=== PATIENT | male | born 1940 | race Caucasian/White ===

== ENCOUNTER 2016-08-01 10:45 | Emergency (ER) | payer MEDICARE, OTHER ==
[~2016-08-01] VITALS: Ht 170.2 cm; Wt 108.5 kg
[~2016-08-01 10:45] MED LIST: AMO500 PO; ESOM40CA PO; FAMO40TA52 PO; IMIQ1CRE14 TOP; LISI30TA47 PO; MECL12.574 PO; NPH10OT LEFT EAR; PANT40TA3 PO; PROP60CA PO
[2016-08-01 10:59] VITALS: Ht 170.2 cm; Wt 108.5 kg
[2016-08-01] MEDS ORDERED: AMO500 PO (12:08)
[2016-08-01] MEDS ORDERED: CARB15DR48 LEFT EAR (12:08)
--- NOTE | 2016-08-01 12:17 | ERD ---
ER Documentation Chief Complaint Date/Time DATE: 08/01/16 TIME: 12:12 Chief Complaint LEFT EARCHE X 3 DAYS HPI 76-year-old male comes in with left-sided ear pain for the past 3 days. Patient states that 2 months ago he had a similar problem where they did an irrigation due to wax and then went home with antibiotics including amoxicillin and Polytrim drops, then his symptoms resolved. Over the last 3 days the same pain has resolved, he complains of any ear pain that is achy, nonradiating without any fevers, chills. He denies drainage. ROS All systems reviewed and are negative except as per history of present illness. Medications Home Meds Active Scripts Carbamide Peroxide* (Debrox*) 6.5% - 15 Ml Drops, 10 DROP LEFT EAR BID, #1 BOTTLE Prov:LAKEISHA BRANNON PA-C 08/01/16 Amoxicillin* (Amoxicillin*) 500 Mg Cap, 500 MG PO TID for 7 Days, CAP Prov:LAKEISHA BRANNON PA-C 08/01/16 Imiquimod (Imiquimod) 5% Cream.pack, 1 PACKET TOP 3 x's a week, #1 EA Prov:MARCY NEWMAN 06/20/16 Neomycin/Polymyxin/Hydrocort* (Cortisporin* Otic) 10 Ml Susp, 4 DROP LEFT EAR QID for 7 Days, #1 EA Prov:MARCY NEWMAN 06/20/16 Amoxicillin* (Amoxicillin*) 500 Mg Cap, 500 MG PO BID for 10 Days, CAP Prov:MARCY NEWMAN 06/20/16 Famotidine* (Famotidine*) 40 Mg Tablet, 40 MG PO BID, #60 TAB Prov:MONROE HAYS 06/16/16 Meclizine Hcl* (Antivert*) 12.5 Mg Tab, 12.5 MG PO Q6H Y for DIZZINESS, #20 TAB Prov:EVON SELLERS MD 04/20/16 Pantoprazole* (Protonix*) 40 Mg Tablet., 40 MG PO DAILY, #20 TAB Prov:ROB SMITH MD 02/29/16 Reported Medications Lisinopril* (Lisinopril*) 30 Mg Tablet, 30 MG PO DAILY, #30 TAB 06/16/16 Esomeprazole Mag Trihydrate (Nexium) 40 Mg Capsule., 40 MG PO DAILY 07/23/15 Propranolol Hcl* (Propranolol Hcl*) 60 Mg Cap.sa.24h, 60 MG PO BID 03/05/13 Allergies Allergies: Coded Allergies: No Known Drug Allergy (Verified Allergy, Unknown, 02/29/16) PMhx/Soc History of Surgery: Yes (HERNIA, COLON) Anesthesia Reaction: No Hx Neurological Disorder: No Hx Respiratory Disorders: No Hx Cardiac Disorders: Yes (HTN) Hx Psychiatric Problems: No Hx Miscellaneous Medical Probl: No Hx Alcohol Use: No Hx Substance Use: No Hx Tobacco Use: No Physical Exam Vitals Vital Signs Date Time Temp Pulse Resp B/P Pulse Ox O2 Delivery O2 Flow Rate FiO2 08/01/16 10:59 98.6 60 18 140/66 98 Physical Exam General: Well-developed, well-nourished. The patient appears in no acute distress. HEENT: Head is normocephalic, atraumatic. No scleral icterus. Oropharynx is clear. Left TM has mild debris, mild erythema on the borders of the TM, no rupture Neck: Supple. Nontender. Lungs: Clear to auscultation. Normal air movement. Heart: Regular rate and rhythm. S1 and S2 are normal. No murmurs, gallops, or rubs. Abdomen: Nondistended. Extremities: No clubbing or cyanosis. Moving extremities x 4. No weakness. Neurologic: Alert and oriented 3. No focal deficits. Normal speech and gait. Skin: Normal turgor. No rash or lesions. Procedures/MDM 76 year old male comes in left ear pain, had evidence of otitis media of left TM , and small debris. Will treat with amoxicillin for otitis media, he is to start Debrox Otic drops after antibiotics. There is no evidence of otitis externa, tympanic membrane perforation, mastoiditis or foreign body. Departure Diagnosis: Primary Impression: Left ear pain Condition: Good Patient Instructions: Common Middle Ear Problems LAKEISHA BRANNON PA-C Aug 01, 2016 12:17
[2016-08-01 12:45] VITALS: BP 134/66; PULSE 70; RESP 18; TEMP 98.2
== END 2016-08-01 12:48 | disposition home or self-care (01) ==
LOC: FTE 10:45
DX: H92.02 Otalgia, left ear (principal); I10 Essential (primary) hypertension
CPT/HCPCS: 99283

== ENCOUNTER 2017-04-14 08:47 | Emergency (ER) | payer MEDICARE, OTHER ==
[~2017-04-14] VITALS: Ht 167.6 cm; Wt 115.0 kg
[~2017-04-14 08:47] MED LIST changes: -AMO500 PO; +AMOX500C2 PO; +CARB15DR50 LEFT EAR
[2017-04-14 08:51] VITALS: Ht 167.6 cm; Wt 115.0 kg
--- NOTE | 2017-04-14 09:31 | RADRPT ---
PROCEDURE: Chest x-ray CLINICAL INDICATION: Shortness of breath TECHNIQUE: Chest single view COMPARISON: 02/29/2016 FINDINGS: There is stable cardiomegaly. There is interval development of mild interstitial CHF. No confluent p neumonias identified. Costophrenic angles are sharp. IMPRESSION: 1. Cardiomegaly with interval development of mild interstitial CHF RPTAT: HH .Dave Cobos MD, MD Date Time Electronically viewed and signed by .Dave Cobos MD, on 04/14/2017 09:31 .W/
--- NOTE | 2017-04-14 09:34 | RADRPT ---
PROCEDURE: Shoulder x-ray CLINICAL INDICATION: Pain TECHNIQUE: Left shoulder 3 views COMPARISON: None FINDINGS: 3 views of the left shoulder demonstrate no displaced fracture. The humeral head articulates anatom ically with the glenoid fossa. There is mild degenerative change of the glenohumeral joint. The acr omioclavicular articulation is within normal limits. Bones are normally mineralized. There is a ro unded 5 cm soft tissue density in the axilla. This may represent muscle belly versus lymph node. Cor relation with physical exam is recommended. IMPRESSION: No acute fracture dislocation Mild degenerative change glenohumeral joint 5 cm rounded soft tissue density in the axilla. This may represent muscle belly or lymph node. Recom mend correlation with physical exam RPTAT: HH .Dave Cobos MD, MD Date Time Electronically viewed and signed by .Dave Cobos MD, MD on 04/14/2017 09:33 .W/
[2017-04-14] MEDS ORDERED: ACET325T33 PO (09:48)
[2017-04-14] MEDS ORDERED: BENZ100C70 PO (09:48)
[2017-04-14] MEDS ORDERED: AZIT250T94 PO (09:48)
--- NOTE | 2017-04-14 09:50 | ERD ---
ER Documentation Chief Complaint Date/Time DATE: 04/14/17 TIME: 09:49 Chief Complaint Complains of back pain HPI Patient is a 77-year-old male with hypertension and ulcers who presents with "cough". He said that he has had "the flu" and coughing a lot over the past 3 weeks. He has upper back pain. He said that he tried Robitussin without much help. His primary doctor is Dr. Bañuelos. Upon review of old medical records the patient has multiple visits to the ER for various complaints. ROS All systems reviewed and are negative except as per history of present illness. Medications Home Meds Active Scripts Acetaminophen* (Tylenol*) 325 Mg Tablet, 2 TAB PO Q8 Y for PAIN AND OR ELEVATED TEMP, #20 TAB Prov:ESPERANZA MCKEON MD 04/14/17 Benzonatate* (Tessalon Perle*) 100 Mg Capsule, 100 MG PO Q8H Y for COUGH, #30 CAP Prov:ESPERANZA MCKEON MD 04/14/17 Azithromycin* (Zithromax*) 250 Mg Tablet, 250 MG PO .ZPACK DIRECTED, #6 TAB TAKE 500 MG (2 TABS) THE FIRST DAY THEN 250 MG (1 TAB) DAYS 2-5 Prov:ESPERANZA MCKEON MD 04/14/17 Carbamide Peroxide* (Debrox*) 6.5% - 15 Ml Drops, 10 DROP LEFT EAR BID, #1 BOTTLE Prov:LAKEISHA RBANNON PA-C 08/01/16 Amoxicillin* (Amoxicillin*) 500 Mg Cap, 500 MG PO TID for 7 Days, CAP Prov:LAKEISHA BRANNON PA-C 08/01/16 Imiquimod (Imiquimod) 5% Cream.pack, 1 PACKET TOP 3 x's a week, #1 EA Prov:MARCY NEWMAN 06/20/16 Neomycin/Polymyxin/Hydrocort* (Cortisporin* Otic) 10 Ml Susp, 4 DROP LEFT EAR QID for 7 Days, #1 EA Prov:MARCY NEWMAN 06/20/16 Amoxicillin* (Amoxicillin*) 500 Mg Cap, 500 MG PO BID for 10 Days, CAP Prov:MARCY NEWMAN 06/20/16 Famotidine* (Famotidine*) 40 Mg Tablet, 40 MG PO BID, #60 TAB Prov:MONROE HAYS 06/16/16 Meclizine Hcl* (Antivert*) 12.5 Mg Tab, 12.5 MG PO Q6H Y for DIZZINESS, #20 TAB Prov:EVON SELLERS MD 04/20/16 Pantoprazole* (Protonix*) 40 Mg Tablet.dr, 40 MG PO DAILY, #20 TAB Prov:ROB SMITH MD 02/29/16 Reported Medications Lisinopril* (Lisinopril*) 30 Mg Tablet, 30 MG PO DAILY, #30 TAB 06/16/16 Esomeprazole Mag Trihydrate (Nexium) 40 Mg Capsule.dr, 40 MG PO DAILY 07/23/15 Propranolol Hcl* (Propranolol Hcl*) 60 Mg Cap.sa.24h, 60 MG PO BID 03/05/13 Allergies Allergies: Coded Allergies: No Known Drug Allergy (Verified Allergy, Unknown, 02/29/16) PMhx/Soc History of Surgery: Yes (R. HERNIA, COLON) Anesthesia Reaction: No Hx Neurological Disorder: No Hx Respiratory Disorders: No Hx Cardiac Disorders: Yes (HTN) Hx Psychiatric Problems: No Hx Miscellaneous Medical Probl: No Hx Alcohol Use: No Hx Substance Use: No Hx Tobacco Use: No FmHx Family History: No diabetes Physical Exam Vitals Vital Signs Date Time Temp Pulse Resp B/P Pulse Ox O2 Delivery O2 Flow Rate FiO2 04/14/17 08:51 97.6 63 20 149/76 98 Physical Exam Const: No acute distress Head: Atraumatic Eyes: Normal Conjunctiva ENT: Normal External Ears, Nose and Mouth. Neck: Full range of motion..~ No meningismus. Resp: Clear to auscultation bilaterally, no retractions or accessory muscle use Cardio: Regular rate and rhythm, no murmurs Abd: Soft, non tender, non distended. Normal bowel sounds Skin: No petechiae or rashes Back: No midline or flank tenderness Ext: No cyanosis, or edema Neur: Awake and alert Psych: Normal Mood and Affect Procedures/MDM EKG read by me: Rate/Rhythm: Right bundle branch block a rate of 61 Intervals: Normal Impression: Right bundle branch block without ischemia Chest x-ray shows cardiomegaly without pneumonia or pneumothorax per radiology. PROCEDURE: Shoulder x-ray CLINICAL INDICATION: Pain TECHNIQUE: Left shoulder 3 views COMPARISON: None FINDINGS: 3 views of the left shoulder demonstrate no displaced fracture. The humeral head articulates anatomically with the glenoid fossa. There is mild degenerative change of the glenohumeral joint. The acromioclavicular articulation is within normal limits. Bones are normally mineralized. There is a rounded 5 cm soft tissue density in the axilla. This may represent muscle belly versus lymph node. Correlation with physical exam is recommended. IMPRESSION: No acute fracture dislocation Mild degenerative change glenohumeral joint 5 cm rounded soft tissue density in the axilla. This may represent muscle belly or lymph node. Recommend correlation with physical exam RPTAT: HH .Dave Cobos MD, MD Date Time Electronically viewed and signed by .Dave Cobos MD, on 04/14/2017 09:33 X-ray reports were provided to the patient prior to discharge. Patient is a 77-year-old male with hypertension and ulcers who presents with cough and congestion over the past 3 weeks. Given the length of his symptoms I will treat him with 5 days of Zithromax for presumed bronchitis. I will treat him with Tessalon Perles for cough and he will be given Tylenol for pain. I doubt pneumonia, pneumothorax, pulmonary embolism, or aortic dissection. I believe outpatient management is appropriate at this time. The patient can return for any worsening symptoms. He should follow-up with Dr. Bañuelos within 24-48 hours for reevaluation. Departure Diagnosis: Primary Impression: Bronchitis Additional Impression: Back pain Back pain location: thoracic back pain Chronicity: acute Back pain laterality: unspecified Qualified Code: M54.6 - Acute thoracic back pain, unspecified back pain laterality Condition: Fair Patient Instructions: Back Pain (Acute Or Chronic), Bronchitis, Antiobiotic Treatment (Adult) Additional Instructions: Llame al doctor MAANA y charlie andrey GADIEL PARA DENTRO DE 1-2 HURST.Dgale a la secretaria que nosotros le instruimos hacer esta gadiel.Avise o llame si castillo condicin se empeora antes de la gadiel. Regresa aqui si peor o no mejor. ESPERANZA MCKEON MD Apr 14, 2017 09:50
== END 2017-04-14 10:18 | disposition home or self-care (01) ==
LOC: FTE 08:47 → E/R 10:18
DX: J20.9 Acute bronchitis, unspecified (principal); M54.6 Pain in thoracic spine; I10 Essential (primary) hypertension
CPT/HCPCS: 71010; 73030; 93005

== ENCOUNTER 2017-06-09 08:22 | Emergency (ER) | payer MEDICARE, OTHER ==
[~2017-06-09] VITALS: Ht 172.7 cm; Wt 114.4 kg
[~2017-06-09 08:22] MED LIST changes: +ACET325T33 PO; +AZIT250T94 PO; +BENZ100C70 PO
[2017-06-09 08:23] VITALS: Ht 172.7 cm; Wt 114.4 kg
--- NOTE | 2017-06-09 08:50 | ERD ---
ER Documentation Chief Complaint Chief Complaint patient complains of pain and burning to the left chest that radiates to HPI This is a 77-year-old male who presents to the emergency room with 2 weeks of pain. He describes pain to the left side of his chest radiating to the back but only when he touches his left nipple. He states that when he touches that area he is a burning pain. However, when he touches the right side of the chest this does not occur. He denies chest pressure, exertional symptoms, pleuritic pain. He denies any skin changes. He denies any recent rash or history of shingles in this area. No fevers or chills. ROS All systems reviewed and are negative except as per history of present illness. Medications Home Meds Active Scripts Acetaminophen* (Tylenol*) 325 Mg Tablet, 2 TAB PO Q8 Y for PAIN AND OR ELEVATED TEMP, #20 TAB Prov:ESPERANZA MCKEON MD 04/14/17 Benzonatate* (Tessalon Perle*) 100 Mg Capsule, 100 MG PO Q8H Y for COUGH, #30 CAP Prov:ESPERANZA MCKEON MD 04/14/17 Azithromycin* (Zithromax*) 250 Mg Tablet, 250 MG PO .ZPACK DIRECTED, #6 TAB TAKE 500 MG (2 TABS) THE FIRST DAY THEN 250 MG (1 TAB) DAYS 2-5 Prov:ESPERANZA MCKEON MD 04/14/17 Carbamide Peroxide* (Debrox*) 6.5% - 15 Ml Drops, 10 DROP LEFT EAR BID, #1 BOTTLE Prov:LAKEISHA BRANNON PA-C 08/01/16 Amoxicillin* (Amoxicillin*) 500 Mg Cap, 500 MG PO TID for 7 Days, CAP Prov:LAKEISHA BRANNON PA-C 08/01/16 Imiquimod (Imiquimod) 5% Cream.pack, 1 PACKET TOP 3 x's a week, #1 EA Prov:MARCY NEWMAN 06/20/16 Neomycin/Polymyxin/Hydrocort* (Cortisporin* Otic) 10 Ml Susp, 4 DROP LEFT EAR QID for 7 Days, #1 EA Prov:MARCY NEWMAN 06/20/16 Amoxicillin* (Amoxicillin*) 500 Mg Cap, 500 MG PO BID for 10 Days, CAP Prov:MARCY NEWMAN 06/20/16 Famotidine* (Famotidine*) 40 Mg Tablet, 40 MG PO BID, #60 TAB Prov:MONROE HAYS 06/16/16 Meclizine Hcl* (Antivert*) 12.5 Mg Tab, 12.5 MG PO Q6H Y for DIZZINESS, #20 TAB Prov:EVON SELLERS MD 04/20/16 Pantoprazole* (Protonix*) 40 Mg Tablet., 40 MG PO DAILY, #20 TAB Prov:ROB SMITH MD 02/29/16 Reported Medications Lisinopril* (Lisinopril*) 30 Mg Tablet, 30 MG PO DAILY, #30 TAB 06/16/16 Esomeprazole Mag Trihydrate (Nexium) 40 Mg Capsule.dr, 40 MG PO DAILY 07/23/15 Propranolol Hcl* (Propranolol Hcl*) 60 Mg Cap.sa.24h, 60 MG PO BID 03/05/13 Allergies Allergies: Coded Allergies: No Known Drug Allergy (Verified Allergy, Unknown, 02/29/16) PMhx/Soc History of Surgery: Yes (R. HERNIA, COLON) Anesthesia Reaction: No Hx Neurological Disorder: No Hx Respiratory Disorders: No Hx Cardiac Disorders: Yes (HTN) Hx Psychiatric Problems: No Hx Miscellaneous Medical Probl: No Hx Alcohol Use: No Hx Substance Use: No Hx Tobacco Use: No FmHx Family History: diabetes Physical Exam Vitals Vital Signs Date Time Temp Pulse Resp B/P Pulse Ox O2 Delivery O2 Flow Rate FiO2 06/09/17 09:24 96.1 58 20 146/84 96 Room Air 06/09/17 08:23 97.5 64 20 166/78 97 Physical Exam General: Well developed, well nourished, no acute distress Head: Normocephalic, atraumatic. Eyes: Pupils equally reactive, EOM intact ENT: Moist mucous membranes Neck: Supple, no lymphadenopathy Respiratory: Lungs clear bilaterally, no distress Cardiovascular: RRR, no murmurs, rubs, or gallops Abdominal: Soft, non-tender, non-distended, no peritoneal signs : Deferred MSK: No edema, no unilateral swelling, 5/5 strength Neurologic: Alert and oriented, moving all extremities, normal speech, no focal weakness, no cerebellar signs Skin: Left anterior chest wall without skin changes. Slight hypersensitivity around the nipple area without skin changes or breast lumps, no axillary lymphadenopathy Psych: Normal mood Result Diagram: 06/09/17 0931 06/09/17 0931 Results 24 hrs Laboratory Tests Test 06/09/17 09:31 White Blood Count 7.310^3/ul Red Blood Count 4.8510^6/ul Hemoglobin 15.5g/dl Hematocrit 44.9% Mean Corpuscular Volume 92.6fl Mean Corpuscular Hemoglobin 32.0pg Mean Corpuscular Hemoglobin Concent 34.5g/dl Red Cell Distribution Width 13.2% Platelet Count 50338^3/UL Mean Platelet Volume 12.2fl Neutrophils % 69.2% Lymphocytes % 17.7% Monocytes % 9.2% Eosinophils % 2.6% Basophils % 0.7% Nucleated Red Blood Cells % 0.0/100WBC Neutrophils # 5.010^3/ul Lymphocytes # 1.310^3/ul Monocytes # 0.710^3/ul Eosinophils # 0.210^3/ul Basophils # 0.110^3/ul Nucleated Red Blood Cells # 0.010^3/ul Sodium Level 139mmol/L Potassium Level 4.9mmol/L Chloride Level 103mmol/L Carbon Dioxide Level 28mmol/L Anion Gap 13 Blood Urea Nitrogen 19mg/dl Creatinine 1.14mg/dl Glucose Level 117mg/dl Calcium Level 8.9mg/dl Troponin I < 0.012ng/ml Procedures/MDM EKG, MONITORS, & DIAGNOSTIC IMAGING: EKG: I reviewed and interpreted a 12-lead EKG. Rhythm: Normal sinus rhythm Ectopy: None Intervals: No abnormalities ST segments: No elevations or depressions T waves: No contiguous inversions Chest x-ray: I reviewed and interpreted a 1 view of the chest, poor inspiratory film Mediastinum: No enlargement Cardiac silhouette: cardiomegaly Airspace: Poor visualization of the lung bases bilaterally Bones: No evidence of fracture LAB INTERPRETATION: Negative troponin MEDICAL DECISION MAKING: The patient presents to the emergency room with very atypical chest pain. This seems to be consistent with a neurologic process versus dermatologic process. The patient only has this pain when he touches the nipple area. There is no evidence of skin tenting, no evidence of breast mass or lymphadenopathy. There are no signs of shingles or stigmata of shingles at this time. No evidence of malignancy noted. I seriously doubt cardiac etiology given the very atypical and reproducible nature of the symptoms. However given the patient's age, comorbidities I do believe that an EKG and troponin and chest x-ray would be reasonable. 2 weeks of symptoms have been noted by the patient. In the end, I believe the patient can be safely discharged with close primary care follow-up. He needs dermatology referral and potential screening for male breast cancer. The patient was informed of this using an interpreter and translator and verbalized understanding. ER COURSE: The patient remains resting comfortably and is asymptomatic. His troponin is negative. His chest x-ray does show slight cardiomegaly and difficult to visualize the lung bases. However it is a very poor inspiratory film. The patient does not have stigmata of congestive heart failure. His chest pain again is very reproducible and atypical. I will reach out to the patient's primary care physician to arrange for outpatient echocardiogram and repeat x- ray imaging. I do not feel the patient warrants inpatient hospitalization for further evaluation or echocardiogram as the patient again has no symptoms consistent with decompensated congestive heart failure. Dr. Enamorado is weatherization administrator for Dr. Bañuelos who will be notified for outpatient follow-up. I kept the patient and/or family informed of laboratory and diagnostic imaging results throughout the emergency room course. DISPOSITION PLAN: We discussed follow up with the patient's primary care doctor within 24 to 48 hours as needed. We also discussed return to the emergency room for worsening symptoms or worsening condition. Outpatient referral: Primary care physician for echocardiogram, further investigation Discharge Medications: None required Departure Diagnosis: Primary Impression: Paresthesia Additional Impression: Chest wall pain Condition: Stable NADEEM PRO MD Jun 09, 2017 08:50
[2017-06-09 09:24] VITALS: BP 146/84; PULSE 58; RESP 20; TEMP 96.1
--- NOTE | 2017-06-09 09:28 | RADRPT ---
PROCEDURE: XR Chest. CLINICAL INDICATION: Chest Pain. TECHNIQUE: AP upright chest COMPARISON: Chest 04/14/2017 FINDINGS: There is poor contrast technique. The heart is moderately enlarged. The pulmonary vessels are promin ent but this is possibly related to technique. Minimal congestive heart failure cannot be excluded. No evidence of gross lung consolidation pleural effusions and pneumothorax. IMPRESSION: Cardiomegaly and possible minimal congestive heart. Interstitial pulmonary edema. RPTAT:AAJJ Physician Magaly Date Time Electronically viewed and signed by Physician Magaly on 06/09/2017 09:28 BM/
[2017-06-09 09:50] LABS: BASOPHIL # 0.1 10^3/ul (0.0-0.1); BASOPHILS % 0.7 % (0.0-2.0); EOSINOPHILS # 0.2 10^3/ul (0.0-0.5); EOSINOPHILS % 2.6 % (0.0-7.0); HEMATOCRIT 44.9 % (42.0-52.0); HEMOGLOBIN 15.5 g/dl (14.0-18.0); LYMPHOCYTES # 1.3 10^3/ul (0.8-2.9); LYMPHOCYTES % 17.7 % (15.0-51.0); MEAN CORPUSCULAR HGB CONC 34.5 g/dl (32.0-37.0); MEAN CORPUSCULAR VOLUME 92.6 fl (82.0-101.0); MEAN PLATELET VOLUME 12.2 fl (7.4-10.4); MONOCYTE # 0.7 10^3/ul (0.3-0.9); MONOCYTES % 9.2 % (0.0-11.0); NEUTROPHILS % 69.2 % (39.0-77.0); PLATELET COUNT 170 10^3/UL (140-415); RED BLOOD COUNT 4.85 10^6/ul (4.70-6.10); RED CELL DISTRIBUTION WIDTH 13.2 % (11.5-14.5); WHITE BLOOD COUNT 7.3 10^3/ul (4.8-10.8)
[2017-06-09 10:04] LABS: ANION GAP 13 (8-16); BLOOD UREA NITROGEN 19 mg/dl (7-20); CALCIUM 8.9 mg/dl (8.4-10.2); CARBON DIOXIDE 28 mmol/L (21-31); CHLORIDE 103 mmol/L (97-110); CREATININE 1.14 mg/dl (0.61-1.24); GLUCOSE 117 mg/dl (70-220); POTASSIUM 4.9 mmol/L (3.5-5.1); SODIUM 139 mmol/L (135-144)
[2017-06-09 10:18] LABS: TROPONIN-I < 0.012 ng/ml (0.00-0.12)
[2017-06-09] MEDS ORDERED: HYDR-902 PO (11:12)
== END 2017-06-09 11:47 | disposition home or self-care (01) ==
LOC: E/R 08:22
DX: R20.2 Paresthesia of skin (principal); R07.89 Other chest pain; I10 Essential (primary) hypertension
CPT/HCPCS: 36415; 71010; 80048; 84484; 85025; 93005

== ENCOUNTER 2017-06-19 09:00 | Emergency (ER) | payer MEDICARE, OTHER ==
[~2017-06-19] VITALS: Ht 172.7 cm; Wt 114.0 kg
[~2017-06-19 09:00] MED LIST changes: +HYDR-902 PO
[2017-06-19 09:02] VITALS: Ht 172.7 cm; Wt 114.0 kg
[2017-06-19] MEDS ORDERED: ACET500C5 PO (09:49)
--- NOTE | 2017-06-19 09:54 | ERD ---
ER Documentation Chief Complaint Chief Complaint Pt presents with L ear pain X 3 days. HPI This is a 77-year-old male who presents emergency department today complaining of left ear pain for the past 3 days states he has a small amount of decreased hearing. States the pain is "inside" patient called his primary care doctor Dr. Varghese but he could not see him for a month or so. Denies any fevers or chills. ROS All systems reviewed and are negative except as per history of present illness. Medications Home Meds Active Scripts Acetaminophen* (Tylophen*) 500 Mg Capsule, 1 CAP PO Q6H Y for PAIN AND OR ELEVATED TEMP, #30 CAP Prov:RONNIE LEWIS PA-C 06/19/17 Hydrocodone/Acetaminophen ([place] 10-325 Tablet) 1 Each Tablet, 1 TAB PO Q6H Y for PAIN, #1 TAB Prov:NADEEM PRO MD 06/09/17 Acetaminophen* (Tylenol*) 325 Mg Tablet, 2 TAB PO Q8 Y for PAIN AND OR ELEVATED TEMP, #20 TAB Prov:ESPERANZA MCKEON MD 04/14/17 Benzonatate* (Tessalon Perle*) 100 Mg Capsule, 100 MG PO Q8H Y for COUGH, #30 CAP Prov:ESPERANZA MCKEON MD 04/14/17 Azithromycin* (Zithromax*) 250 Mg Tablet, 250 MG PO .ZPACK DIRECTED, #6 TAB TAKE 500 MG (2 TABS) THE FIRST DAY THEN 250 MG (1 TAB) DAYS 2-5 Prov:ESPERANZA MCKEON MD 04/14/17 Carbamide Peroxide* (Debrox*) 6.5% - 15 Ml Drops, 10 DROP LEFT EAR BID, #1 BOTTLE Prov:LAKEISHA BRANNON PA-C 08/01/16 Amoxicillin* (Amoxicillin*) 500 Mg Cap, 500 MG PO TID for 7 Days, CAP Prov:LAKEISHA BRANNON PA-C 08/01/16 Imiquimod (Imiquimod) 5% Cream.pack, 1 PACKET TOP 3 x's a week, #1 EA Prov:MARCY NEWMAN 06/20/16 Neomycin/Polymyxin/Hydrocort* (Cortisporin* Otic) 10 Ml Susp, 4 DROP LEFT EAR QID for 7 Days, #1 EA Prov:MARCY NEWMAN 06/20/16 Amoxicillin* (Amoxicillin*) 500 Mg Cap, 500 MG PO BID for 10 Days, CAP Prov:PATYMARCY MCCLOUD 06/20/16 Famotidine* (Famotidine*) 40 Mg Tablet, 40 MG PO BID, #60 TAB Prov:SAÚLMONROE 06/16/16 Meclizine Hcl* (Antivert*) 12.5 Mg Tab, 12.5 MG PO Q6H Y for DIZZINESS, #20 TAB Prov:EVON SELLERS MD 04/20/16 Pantoprazole* (Protonix*) 40 Mg Tablet., 40 MG PO DAILY, #20 TAB Prov:ROB SMITH MD 02/29/16 Reported Medications Lisinopril* (Lisinopril*) 30 Mg Tablet, 30 MG PO DAILY, #30 TAB 06/16/16 Esomeprazole Mag Trihydrate (Nexium) 40 Mg Capsule.dr, 40 MG PO DAILY 07/23/15 Propranolol Hcl* (Propranolol Hcl*) 60 Mg Cap.sa.24h, 60 MG PO BID 03/05/13 Allergies Allergies: Coded Allergies: No Known Drug Allergy (Verified Allergy, Unknown, 02/29/16) PMhx/Soc History of Surgery: Yes (Colon Sx, Hernia repair, ) Anesthesia Reaction: No Hx Neurological Disorder: No Hx Respiratory Disorders: No Hx Cardiac Disorders: Yes (HTN) Hx Psychiatric Problems: No Hx Miscellaneous Medical Probl: Yes (Hx of HTN, Ulcer, Vertigo) Hx Alcohol Use: No Hx Substance Use: No Hx Tobacco Use: No Physical Exam Vitals Vital Signs Date Time Temp Pulse Resp B/P Pulse Ox O2 Delivery O2 Flow Rate FiO2 06/19/17 09:02 97.8 62 14 153/73 100 Physical Exam Const: NAD Head: Atraumatic Eyes: Normal Conjunctiva ENT: Bilateral ears with cerumen. Nontender mastoids. No auricle tenderness nose no drainage. Throat erythema no exudate Neck: Full range of motion..~ No meningismus. Resp: Clear to auscultation bilaterally Cardio: Regular rate and rhythm, no murmurs Abd: Soft, non tender, non distended. Normal bowel sounds Skin: No petechiae or rashes Back: No midline or flank tenderness Ext: No cyanosis, or edema Neur: Awake and alert Psych: Normal Mood and Affect Procedures/MDM This is a 77-year-old male who presents emergency department today complaining of some left ear pain and a small amount of decreased hearing. On physical exam patient had bilateral cerumen impaction. I did remove the cerumen bilaterally with a small speculum and patient reported significant improvement in pain. I do not see evidence of erythema. TMs have good cone of light. There is no drainage. Of low suspicion for otitis externa, otitis media or mastoiditis. Patient was given a prescription for Tylenol for pain. At this time the patient is stable for discharge and outpatient management. Patient should follow up with their PCP in the next 1-2 days. They may return to the emergency department sooner for any persistent or worsening of symptoms. Patient understood and agreed with the plan. Departure Diagnosis: Primary Impression: Left ear pain Condition: Fair Patient Instructions: Ear Wax, Treated Referrals: CRAIG VARGHESE MD (PCP) Additional Instructions: Llame al doctor PASCUAL y charlie andrey GADIEL PARA DENTRO DE 1-2 HURST.Dgale a la secretaria que nosotros le instruimos hacer esta gadiel.Avise o llame si castillo condicin se empeora antes de la gadiel. Regresa aqui si peor o no mejor. Take Tylenol for pain RONNIE LEWIS PA-C Jun 19, 2017 09:54
== END 2017-06-19 10:08 | disposition home or self-care (01) ==
LOC: FTE 09:00
DX: H92.02 Otalgia, left ear (principal); I10 Essential (primary) hypertension
CPT/HCPCS: 99283

== ENCOUNTER 2018-03-14 08:01 | Emergency (ER) | END 2018-03-14 09:27 | disposition home or self-care (01) ==